=== PATIENT | female | born 1985 | race Caucasian/White ===

== ENCOUNTER 2019-07-03 08:41 | Emergency (ER) | payer SELFPAY ==
[2019-07-03] MEDS ORDERED: NS 0.9% 1000 ML** 1,000 ML IV ONE (10:06)
--- NOTE | 2019-07-03 10:19 | ED ---
Abdominal Pain/Female - HPI Summary HPI Summary: Patient is a 33 y/o F presenting to the ED for a chief complaint of intermittent suprapubic abdominal pain for the last 2 days. On triage, she describes the pain as a sharp sensation and rates the pain as 7/10 in severity. Patient denies any fever, cough, nausea, vomiting, diarrhea, hematochezia, dysuria, urinary burning, vaginal discharge, vaginal bleeding, back pain, or flank pain. Any aggravating or alleviating factors are denied. Patient notes that she is 10 weeks . She has had 7 pregnancies in the past, including 5 children and 2 miscarriages. LNMP was on 04/29/19. She denies having an ultrasound for her current , but notes having an [employer] OUT MAN in [place]. Any significant PMHx, including DM is denied. Any PSHx, including any abdominal surgeries, is denied. She is visiting [facility]. - History of Current Complaint Chief Complaint: EDAbdPain Stated Complaint: 10 WEEKS PREG CRAMPING Time Seen by Provider: 07/03/19 10:00 Hx Obtained From: Patient Onset/Duration: Sudden Onset, Lasting Days - 2 days, Still Present Timing: Intermittent Episode Lasting Severity Initially: Severe Severity Currently: Severe Pain Intensity: 7 Pain Scale Used: 0-10 Numeric Location: Suprapubic Radiates: No Character: Sharp Aggravating Factor(s): Nothing Alleviating Factor(s): Nothing Associated Signs and Symptoms: Negative: Fever, Cough, Back Pain, Blood in Stool , Urinary Symptoms - Urinary burning or dysuria, Vaginal Bleeding, Vaginal Discharge, Nausea, Vomiting, Diarrhea Allergies/Adverse Reactions: Allergies Allergy/AdvReac Type Severity Reaction Status Date / Time No Known Allergies Allergy Verified 07/03/19 08:56 Home Medications: Home Medications Caplet 1 cap PO DAILY 07/03/19 [History Confirmed 07/03/19] PMH/Surg Hx/FS Hx/Imm Hx Previously Healthy: Yes Endocrine/Hematology History: Denies: Hx Diabetes Sensory History: Denies: Hx Legally Blind, Hx Deafness Opthamlomology History: Denies: Hx Legally Blind EENT History: Denies: Hx Deafness - Surgical History Surgical History: None Surgery Procedure, Year, and Place: None Infectious Disease History: No Infectious Disease History: Denies: Traveled Outside the [place] in Last 30 Days - Family History Known Family History: Negative: Diabetes - Social History Occupation: Unemployed Lives: With Family Alcohol Use: None Hx Substance Use: No Substance Use Type: Reports: None Hx Tobacco Use: Yes Smoking Status (MU): Light Every Day Tobacco Smoker Review of Systems Negative: Fever Negative: Cough Positive: Abdominal Pain - Suprapubic. Negative: Vomiting, Diarrhea, Nausea, Other - Negative hematochezia Negative: burning - Urinary, dysuria, discharge - Vaginal, flank pain, other - Negative vaginal bleeding Negative: Myalgia - Negative back pain All Other Systems Reviewed And Are Negative: Yes Physical Exam - Summary Physical Exam Summary: Constitutional: Well-developed, Well-nourished, Alert. (-) Distressed Skin: Warm, Dry HENT: Normocephalic; Atraumatic Eyes: Conjunctiva normal Neck: Musculoskeletal ROM normal neck. (-) JVD, (-) Stridor, (-) Tracheal deviation Cardio: Rhythm regular, rate normal, Heart sounds normal; Intact distal pulses; The pedal pulses are 2+ and symmetric. Radial pulses are 2+ and symmetric. (-) Murmur Pulmonary/Chest wall: Effort normal. (-) Respiratory distress, (-) Wheezes, (-) Rales Abd: Soft, (-) tenderness, (-) Distension, (-) Guarding, (-) Rebound. Mild suprapubic abdominal pain. Musculoskeletal: (-) Edema Lymph: (-) Cervical adenopathy Neuro: Alert, Oriented x3 Psych: Mood and affect Normal Triage Information Reviewed: Yes Vital Signs On Initial Exam: Initial Vitals Temp Pulse Resp BP Pulse Ox 97.7 F 86 18 110/73 100 07/03/19 08:52 07/03/19 08:52 07/03/19 08:52 07/03/19 08:52 07/03/19 08:52 Vital Signs Reviewed: Yes Procedures - Sedation Patient Received Moderate/Deep Sedation with Procedure: No Diagnostics - Vital Signs Vital Signs Temp Pulse Resp BP Pulse Ox 07/03/19 10:03 76 100 07/03/19 08:52 97.7 F 86 18 110/73 100 - Laboratory Result Diagrams: 07/03/19 10:15 07/03/19 10:15 Lab Statement: Any lab studies that have been ordered have been reviewed, and results considered in the medical decision making process. - Ultrasound US Ultrasound Interpretation Completed By: Radiologist Summary of Ultrasound Findings: US IMPRESSION: Single intrauterine gestation with a gestational age of 10 weeks 1 day. Estimated date of delivery is January 28, 2020. No adnexal masses are noted. Reviewed by Dr. Merrill. Abdominal Pain Fem Course/Dx - Course Course Of Treatment: Patient is a 33 y/o F presenting to the ED for a chief complaint of intermittent suprapubic abdominal pain for the last 2 days. On triage, she describes the pain as a sharp sensation and rates the pain as 7/10 in severity. Patient denies any fever, cough, nausea, vomiting, diarrhea, hematochezia, dysuria, urinary burning, vaginal discharge, vaginal bleeding, back pain, or flank pain. Any aggravating or alleviating factors are denied. Patient notes that she is 10 weeks . She has had 7 pregnancies in the past, including 5 children and 2 miscarriages. LNMP was on 04/29/19. She denies having an ultrasound for her current , but notes having an [employer] OUT MAN in [place]. Any significant PMHx, including DM is denied. Any PSHx, including any abdominal surgeries, is denied. She is visiting [facility]. On exam, soft, non-distended abdomen, mild suprapubic abdominal pain. In the ED course, IV fluids were ordered, but not given as the patient declined. Laboratory abnormal findings: AST 12, urine leukocyte esterase 1+, urine WBC 1+ , urine RBC 1+, urine squamous epith cells present. US IMPRESSION: Single intrauterine gestation with a gestational age of 10 weeks 1 day. Estimated date of delivery is January 28, 2020. No adnexal masses are noted. Patient will be discharged with a diagnosis of . Follow up with OB as soon as possible. - Diagnoses Provider Diagnoses: Discharge ED - Sign-Out/Discharge Documenting (check all that apply): Patient Departure - Discharge - Discharge Plan Condition: Stable Disposition: HOME Patient Education Materials: (ED) Referrals: [facility] [Outside] Additional Instructions: RETURN TO THE EMERGENCY DEPARTMENT FOR CHANGING OR WORSENING SYMPTOMS. Follow up with your OB as soon as possible. - Billing Disposition and Condition Condition: STABLE Disposition: Home - Attestation Statements Document Initiated by Scribe: Yes Documenting Scribe: Rani Haley Provider For Whom Scribe is Documenting (Include Credential): Jose Elias Merrill DO Scribe Attestation: IRani, scribed for Jose Elias Merrill DO on 07/03/19 at 1416. Scribe Documentation Reviewed: Yes Provider Attestation: The documentation as recorded by the scribe, Rani Haley accurately reflects the service I personally performed and the decisions made by me, Jose Elias Merrill DO Status of Scribe Document: Viewed
[2019-07-03 10:26] LABS: ABS Eosinophils 0.1 10^3/ul (0-0.6); ABS Lymphocytes 1.9 10^3/ul (1.0-4.8); ABS Monocytes 0.3 10^3/ul (0-0.8); ABS Neutrophils 4.1 10^3/ul (1.5-7.7); Eosinophil % 1.1 %; Hematocrit 40 % (35-47); Hemoglobin 13.7 g/dL (12.0-16.0); Lymphocyte % 29.1 %; Mean Corpuscular HGB Conc 34 g/dL (31-36); Mean Corpuscular Hemoglobin 31 pg (27-31); Mean Corpuscular Volume 90 fL (80-97); Mean Platelet Volume 10.4 fL (7.4-10.4); Nucleated Red Blood Cells % 0.1; Platelet Count 184 10^3/uL (150-450); Red Blood Count 4.44 10^6 /uL (3.70-4.87); Red Cell Distribution Width 13 % (10-15); White Blood Count 6.5 10^3/uL (3.5-10.8)
[2019-07-03 10:35] LABS: Urine Appearance Cloudy; Urine Bilirubin Negative (Negative); Urine Blood Negative (Negative); Urine Color Yellow; Urine Glucose Negative (Negative); Urine Ketones Negative (Negative); Urine Nitrite Negative (Negative); Urine Protein Negative (Negative); Urine Urobilinogen Negative (Negative)
[2019-07-03 10:43] LABS: Urine Bacteria Absent (Absent); Urine Red Blood Cell 1+(3-5/hpf) (Absent); Urine Squamous Epithelial Cell Present (Absent); Urine White Blood Cell 1+(6-10/hpf) (Absent)
[2019-07-03 10:46] LABS: Albumin 4.6 g/dL (3.2-5.2); Albumin/Globulin Ratio 1.8 (1-3); BUN/Creatinine Ratio 16.1 (8-20); Calcium 9.4 mg/dL (8.6-10.3); EGFR African American 151.8 (>60); EGFR Non-African American 125.5 (>60); Globulin 2.5 g/dL (2-4); Potassium 3.8 mmol/L (3.5-5.0); Total Bilirubin 0.4 mg/dL (0.2-1.0); Total Protein 7.1 g/dL (6.4-8.9)
[2019-07-03 13:04] VITALS: BP 103/67
== END 2019-07-03 13:04 | disposition home or self-care (01) ==
LOC: ED 08:41
DX: Z34.81 Encounter for supervision of other normal pregnancy, first trimester (principal); R10.9 Unspecified abdominal pain; Z3A.10 10 weeks gestation of pregnancy
CPT/HCPCS: 36415; 76801; 80053; 81003; 81015; 85025; 87086; 99282